=== PATIENT | female | born 1985 | race Caucasian/White ===

== ENCOUNTER → 2024-06-28 10:09 | Outpatient (REF) | payer OTHER, SELFPAY | LOC: WDC 10:09 | PROVIDERS: ATTENDING PHYSICIAN Nurse Practitioner Adult Health | DX: N63.10 Unspecified lump in the right breast, unspecified quadrant (principal); N63.11 Unspecified lump in the right breast, upper outer quadrant | CPT/HCPCS: 76642; 77062; 77066 ==

== ENCOUNTER → 2024-08-28 13:02 | Outpatient (REF) | payer OTHER, SELFPAY | LOC: WDC 13:02 | PROVIDERS: ATTENDING PHYSICIAN Nurse Practitioner Adult Health; FAMILY PHYSICIAN Family Medicine | DX: R92.2 Inconclusive mammogram (principal) | CPT/HCPCS: 76641 ==

== ENCOUNTER → 2024-11-22 13:06 | Outpatient (REF) | payer OTHER, SELFPAY | LOC: HWRAD 13:06 | PROVIDERS: ATTENDING PHYSICIAN Nurse Practitioner Adult Health; FAMILY PHYSICIAN Family Medicine | DX: N83.209 Unspecified ovarian cyst, unspecified side (principal) | CPT/HCPCS: 76830; 76856 ==

== ENCOUNTER 2025-03-08 13:14 | Emergency (ER) | payer OTHER, SELFPAY ==
[2025-03-08 13:23] VITALS: BP 137/97
--- NOTE | 2025-03-08 14:27 | ED.GENMED ---
History of Present Illness
General
Chief Complaint: Skin Surface Trauma
Source: patient
Time Seen by Provider: 03/08/25 14:11
History of Present Illness
History of Present Illness:
39-year-old female presents to the emergency room complaining of having a injury to her left little finger. Patient had a marianne jar break while she was taking out of the clay plant treater resulting in a laceration to her left fifth finger. Last tetanus
was about 9 months ago.
Phy Exam
Physical Exam
Physical Exam:
General: Awake, Alert, Oriented X3. No acute distress.
Vitals: unremarkable
Head: Atraumatic
Eyes: Pupils equal, EOMI
Neck: Trachea midline
Neuro: Nonfocal
Skin: Warm, dry, no rash
Extremities: pulses equal b/l, no edema. Approx-2 cm L-shaped laceration with a flap component noted lateral aspect of the left proximal fifth finger. Range of motion intact. Sensation intact. Tendon exam intact. Normal lie of the fifth digit
with range of motion at the wrist.
Course
Orders/Labs/Results
Orders:
Orders
03/08/25 14:25
Finger(s)/Thumb 2 View Lt [CR Finger(s)/thumb Min 2 Vw Lt] Urgent
Comment:
Reason For Exam: eval for f.b.
Indicate Which Finger:: Little Finger
Vital Signs
Initial and Last Documented VS:
Initial Vital Signs
Pulse Resp Pulse Ox
59 18 100
03/08/25 13:19 03/08/25 13:19 03/08/25 13:19
Last Documented Vital Signs
Temp Pulse Resp BP Pulse Ox
98.7 F 59 18 137/97 100
03/08/25 13:23 03/08/25 13:19 03/08/25 13:19 03/08/25 13:23 03/08/25 14:30
MDM/Problems Addressed
Differential Diagnosis Includes:
Laceration, retained foreign body, tendon injury
MDM/Problems Addressed:
Patient presents with a laceration to her left fifth digit. X-ray shows no acute abnormality or retained foreign body. Wound irrigated extensively. No tendon injury noted. Closed with simple interrupted stitches.
*Pulse Oximetry
SaO2: 100
Oxygen Mode of Delivery: Room air
Patient hypoxic: no
*Critical Care Note
Total Time (30-74mins, 75-104mins- exclusive of procedures): Not Applicable
ED Attending Note
-
Portions of this chart may have been created with voice recognition software.� Occasional wrong word or��sound alike� substitutions may have occurred due to the inherent limitations of voice recognition software.
Discharge Plan
Departure
Patient Disposition: Home (Routine Discharge)
Date of Disposition: 03/08/25
Time of Disposition: 16:02
Patient with high blood pressure during this ER visit?: No
Condition: Good
Discharge Problem:
Laceration of finger of left hand
Instructions: Laceration Repair With Stitches (DC), BLOOD PRESSURE
Referrals:
Niya Chand MD [Family Provider, Family Practice]
Activity Restrictions/Additional Instructions:
Stitches should be removed in 7 days. Return for any signs of infection such as redness, purulent discharge
Interventions
Interventions:
*Risk Screen - Suicide Last Done: 03/08/25 13:23
*Neglect/Abuse Screening Last Done: 03/08/25 13:23
*Nursing Disposition Last Done: 03/08/25 16:43
ED-Skin Assessment Last Done: 03/08/25 14:11
Discharge Date and Time
Discharge Date/Time: 03/08/25 16:43
Print Language: [id number]
== END 2025-03-08 16:43 | disposition home or self-care (01) ==
LOC: EMR 13:14
PROVIDERS: EMERGENCY PHYSICIAN Emergency Medicine; FAMILY PHYSICIAN Family Medicine
DX: S61.217A Laceration without foreign body of left little finger without damage to nail, initial encounter (principal); W45.8XXA Other foreign body or object entering through skin, initial encounter
CPT/HCPCS: 99283; 12001; 73140